=== PATIENT | male | born 1945 | race Caucasian/White ===

== ENCOUNTER → 2025-07-23 | Outpatient (REF) | payer MEDICARE, OTHER ==
[~2025-07-23] MED LIST: IOPAMIDOL 370 MG/ML 100 ML INFUS..BTL INJ ONE; NITROGLYCERIN 0.4 MG SUBL ONE; SODIUM CHLORIDE 0.9% 100 ML ONE
[2025-07-23 11:02] LABS: EST GLOMERULAR FILTRATION RATE 91.0 ML/MIN (>=60)
== END ==
LOC: CT 09:53
PROVIDERS: ATTEND Internal Medicine Cardiovascular Disease
DX: I20.9 Angina pectoris, unspecified (principal)
CPT/HCPCS: 36415; 75574; 75580; 82565; 84520; J7050; Q9967